=== PATIENT | male | born 1995 | race Caucasian/White ===

== ENCOUNTER 2017-01-26 12:13 | Emergency (ER) | payer OTHER ==
[~2017-01-26 12:13] MED LIST: ALBUTEROL; ALBUTEROL 0.5ML; ALBUTEROL0.83 MG/ML IH; ALBUTEROL17 G1; ALBUTEROL17 GM INH; FLAGYL PO; KEFLEX250 M2 PO; LEVAQUIN PO; LORTAB 5/500 TA1 TA2 PO; LORTAB 7.51 TAB 7.5/ PO; NO MEDICATIONS; PREDNISONE50 MG PO; PROVENTIL INH0.5 ML; VOLTAREN50 MG PO; ZOFRAN ODT4 MG/UDTAB PO
== END 2017-01-26 15:15 | disposition home or self-care (01) ==
LOC: CED 12:13
DX: L03.213 Periorbital cellulitis (principal); F17.210 Nicotine dependence, cigarettes, uncomplicated; J45.909 Unspecified asthma, uncomplicated
CPT/HCPCS: 87070; 87077; 87186; 87205; 96372; 99283